=== PATIENT | female | born 1955 | race Caucasian/White ===

== ENCOUNTER 2019-07-25 10:31 | Day surgery (SDC) | payer MEDICAID ==
[~2019-07-25] VITALS: Ht 152.4 cm; Wt 68.9 kg
[~2019-07-25 10:31] MED LIST: ATOR10TA69 PO; MITOMYCIN 0.2 MG KIT OP ONE
[2019-07-25] MEDS ORDERED: LACTATED RINGERS 1,000 ML IV SCH (11:40)
[2019-07-25] MEDS ORDERED: LATA7.5D RIGHTEYE (12:56)
[2019-07-25] MEDS ORDERED: TIMO5DRO27 RIGHTEYE (12:56)
[2019-07-25] MEDS ORDERED: TRIAMCINOLONE ACETONIDE 40MG/ML 1ML VIAL ONE (13:33)
[2019-07-25] MEDS ORDERED: MIDAZOLAM HCL 2 MG/2 ML VIAL ONE (13:40)
[2019-07-25] MEDS ORDERED: PROPOFOL 200MG/20ML VIAL IV ONE (13:40)
[2019-07-25] MEDS ORDERED: FENTANYL CITRATE/PF 50MCG/ML 2ML VIAL ONE (13:40)
[2019-07-25] MEDS ORDERED: LIDOCAINE HCL 1% 20ML VIAL (Pyxis) INJ ONE (13:49)
[2019-07-25] MEDS ORDERED: CIPROFLOXACIN 0.3% OPHTH SOLN 2.5ML ONE (15:52)
[2019-07-25] MEDS ORDERED: NEO/POLYMYX B SULF/DEXAMETH OPHTH OINT 3.5GM ONE (15:52)
[2019-07-25] MEDS ORDERED: BUPIVACAINE HCL/PF 0.75% (7.5MG/ML) 10ML ONE (15:52)
[2019-07-25] MEDS ORDERED: PREDNISOLONE ACETATE 1% OPHTH DROPS 1ML ONE (15:52)
[2019-07-25] MEDS ORDERED: LIDOCAINE HCL 2%/EPINEPHRINE 1:100,000 20 ML VIAL INFIL ONE (15:52)
[2019-07-25] MEDS ORDERED: LIDOCAINE HCL/PF 2% 20 MG/ML 10ML VIAL ONE (15:52)
[2019-07-25] MEDS ORDERED: TETRACAINE 0.5% OPHTH DROPS 4ML ONE (15:52)
[2019-07-25] MEDS ORDERED: BALANCED SALT IRRIG SOLN 15ML ONE (15:52)
== END 2019-07-25 15:45 | disposition home or self-care (01) ==
LOC: OR 10:31
PROVIDERS: ATTEND Ophthalmology
DX: H11.89 Other specified disorders of conjunctiva (principal); E78.49 Other hyperlipidemia; H40.9 Unspecified glaucoma; Z98.890 Other specified postprocedural states; Z79.899 Other long term (current) drug therapy
CPT/HCPCS: 66250; J2250; J2704; J3490; J9280; J3010; J3301

== ENCOUNTER → 2023-07-13 | Day surgery (SDC) | payer MEDICAID ==
[~2023-07-13] VITALS: Ht 154.9 cm; Wt 63.5 kg
[~2023-07-13] MED LIST changes: +BALANCED SALT IRRIG SOLN COMB1 500ML OP SCH; +CEFAZOLIN SODIUM 1000MG/VIAL ONE; +CYCLOPENTOLATE HCL 1% OPHTH DROPS 2ML LEFTEYE SCH; +FENTANYL CITRATE/PF 50MCG/ML 2ML VIAL ONE; +HYALURONATE SODIUM 10 MG/ML 0.55ML SYRINGE IO ONE; +LACTATED RINGERS 1,000 ML IV SCH; +LATA7.5D RIGHTEYE; +LISI20TA31 PO; +LOVA10TA PO; +MIDAZOLAM HCL 2 MG/2 ML VIAL ONE; -MITOMYCIN 0.2 MG KIT OP ONE; +ONDANSETRON HCL 4MG/2ML INJ ONE; +PHENYLEPHRINE HCL 10% OPHTH DROPS 5ML LEFTEYE SCH; +TIMO5DRO40 RIGHTEYE; +TROPICAMIDE 1% OPHTH DROPS 15ML LEFTEYE SCH
[2023-07-13 10:05] LABS: BASOPHILS % 0.8 % (0.0-2.0); EOSINOPHILS % 1.1 % (0.0-5.0); HEMATOCRIT. 39.2 % (36.0-48.0); HEMOGLOBIN. 13.5 g/dL (12.0-16.0); LYMPHOCYTES % 24.1 % (20.0-50.0); MEAN CORPUSCULAR HEMOGLOBIN 30.4 pg (28.0-32.0); MEAN CORPUSCULAR HGB CONC 34.5 g/dL (31.0-37.0); MEAN CORPUSCULAR VOLUME 88.2 fL (81.0-99.0); MEAN PLATELET VOLUME 7.9 fl (7.4-10.4); MONOCYTES % 6.6 % (2.0-8.0); NEUTROPHILS % 67.4 % (40.0-76.0); PLATELET 239 x1000/uL (130-400); RED BLOOD CELL COUNT 4.44 mill/uL (4.2-5.4); RED CELL DISTRIBUTION WIDTH 14.3 % (11.6-14.6); WHITE BLOOD COUNT 6.6 x1000/uL (4.5-11.0)
[2023-07-13 10:35] LABS: CARBON DIOXIDE 29 mEq/L (21-32); CHLORIDE 108 mEq/L (98-107); GLUCOSE 113 mg/dL (70-105); INDEX HEMOLYSI 1 (1-3); INDEX ICTERIC 1 (1-4); INDEX LIPEMIC 1 (1-3); SODIUM 138 mEq/L (136-145); UREA NITROGEN BLOOD 15 mg/dL (7-21)
[2023-07-13 10:36] LABS: CREATININE 0.7 mg/dL (0.6-1.3)
== END | disposition home or self-care (01) ==
LOC: OR 09:18
PROVIDERS: ATTEND Ophthalmology
DX: H25.89 Other age-related cataract (principal); I10 Essential (primary) hypertension; E78.00 Pure hypercholesterolemia, unspecified; Z79.899 Other long term (current) drug therapy; Z98.890 Other specified postprocedural states
CPT/HCPCS: 66982; 80048; 85025; 36415; J3010; J0690; J2250; J2405; J3490; V2632

== ENCOUNTER → 2023-07-27 | Day surgery (SDC) | payer MEDICAID ==
[~2023-07-27] VITALS: Ht 154.9 cm; Wt 63.5 kg
[~2023-07-27] MED LIST changes: -BALANCED SALT IRRIG SOLN COMB1 500ML OP SCH; -CEFAZOLIN SODIUM 1000MG/VIAL ONE; +CYCLOPENTOLATE HCL 1% OPHTH DROPS 2ML LEFTEYE ONE; -CYCLOPENTOLATE HCL 1% OPHTH DROPS 2ML LEFTEYE SCH; -HYALURONATE SODIUM 10 MG/ML 0.55ML SYRINGE IO ONE; +KETOROLAC 30MG/ML VIAL ONE; -LISI20TA31 PO; +LISI40TA20 PO; -ONDANSETRON HCL 4MG/2ML INJ ONE; +PHENYLEPHRINE HCL 10% OPHTH DROPS 5ML LEFTEYE ONE; -PHENYLEPHRINE HCL 10% OPHTH DROPS 5ML LEFTEYE SCH; +PROPOFOL 200MG/20ML VIAL IV ONE; +TROPICAMIDE 1% OPHTH DROPS 15ML LEFTEYE ONE; -TROPICAMIDE 1% OPHTH DROPS 15ML LEFTEYE SCH
== END | disposition home or self-care (01) ==
LOC: OR 06:30
PROVIDERS: ATTEND Ophthalmology
DX: H40.89 Other specified glaucoma (principal); E78.00 Pure hypercholesterolemia, unspecified; I10 Essential (primary) hypertension; Z79.899 Other long term (current) drug therapy; Z98.890 Other specified postprocedural states
CPT/HCPCS: 66170; J3010; J1885; J2250; J2704